=== PATIENT | male | born 1990 | race Hispanic/Latino ===

== ENCOUNTER 2017-02-03 20:07 | Observation (INO) | payer SELFPAY ==
[~2017-02-03] VITALS: Ht 170.2 cm; Wt 90.0 kg
--- NOTE | 2017-02-03 20:26 | NUR ---
PT TO ROOM FOR TREATMENT IN STABLE CONDITION
--- NOTE | 2017-02-03 20:27 | NUR ---
PT. TO ROOM 15 WITH C/O WORKING OUTSIDE ALL DAY IN THE HEAT AND NOT DRINKING ENOUGH FLUID. SKIN WARM AND DRY TO TOUCH, COLOR WNL, RESP. EVEN AND UNLABORED. V/S STABLE.
[2017-02-03 21:25] LABS: URINE BLOOD DIPSTICK TRACE-INTACT (NEGATIVE); URINE COLOR YELLOW; URINE GLUCOSE - DIPSTICK NEGATIVE (NEGATIVE); URINE KETONE TRACE mg/dL (NEGATIVE); URINE LEUK ESTERASE NEGATIVE (NEGATIVE); URINE NITRITE - DIPSTICK NEGATIVE (Negative); URINE SPECIFIC GRAVITY >=1.030; URINE UROBILINOGEN - DIPSTICK 0.2 E.U./dL (0.2)
[2017-02-03 21:27] LABS: URINE BILIRUBIN - DIPSTICK SMALL (NEGATIVE); URINE CLARITY SLIGHT CLOUDY; URINE PROTEIN - DIPSTICK Trace mg/dL (NEG-TRACE)
[2017-02-03 21:27] LABS: HEMATOCRIT 51.8 % (39.0-50.0); HEMOGLOBIN 18.8 g/dl (14.0-18.0); IMMATURE GRANULOCYTES 0.5 % (0.0-1.0); MEAN CELL VOLUME 82.7 fL CALC (80.0-100.0); MEAN CORPUSCULAR HGB CONC 36.3 g/L CALC (32.0-36.0); NEUT# 15.82 thou/uL (1.82-7.42); RED BLOOD COUNT 6.26 mill/uL (4.70-6.10); RED CELL DISTRI WIDTH 12.3 % (11.5-15.5)
--- NOTE | 2017-02-03 21:27 | NUR ---
IVF IN FUSING WELL, NO REDNESS OR EDEMA NOTED. FAMILY AT SIDE.
[2017-02-03 21:41] LABS: ALKALINE PHOSPHATASE 84 u/l (38-126); ANION GAP 35 (6-22 (CALC)); BILIRUBIN, TOTAL 1.2 mg/dL (0.0-1.4); BUN 34 mg/dL (9-20); BUN/CREATININE RATIO 13 (12-20 (CALC)); CALCIUM 11.7 mg/dL (8.4-10.2); CARBON DIOXIDE 16 mmol/l (22-30); CHLORIDE 93 mmol/l (95-108); CREATININE 2.6 mg/dL (0.7-1.3); GFR 30 ML/MIN (>=60 (CALC)); GFR FOR AFR.AMER. 36 ML/MIN (>=60 (CALC)); GLUCOSE 129 mg/dL (75-110); POTASSIUM 4.4 mmol/l (3.5-5.1); SGOT/AST 41 u/l (17-59); SGPT/ALT 58 u/l (21-72); SODIUM 139 mmol/l (137-146)
[2017-02-03 21:47] LABS: ALBUMIN > 6.0 g/dL (3.2-5.0); TOTAL PROTEIN > 11.0 g/dL (6.3-8.2)
--- NOTE | 2017-02-03 22:07 | NUR ---
PT. RESTING ON STRETCHER, NO C/O PAIN OR DISCOMFORT OFFERED, REFUSED MS AND ZOFRAN.
--- NOTE | 2017-02-03 23:07 | NUR ---
IVF CONT. INFUSING. PT. RESTING ON STRETCHER, NO ACUTE DISTRESS NOTED.
--- NOTE | 2017-02-04 00:07 | NUR ---
PT. STATES, " I FEEL MUCH BETTER NOW."
[2017-02-04 00:18] LABS: HEMATOCRIT 46.2 % (39.0-50.0); HEMOGLOBIN 16.6 g/dl (14.0-18.0); IMMATURE GRANULOCYTES 0.4 % (0.0-1.0); MEAN CELL VOLUME 83.2 fL CALC (80.0-100.0); MEAN CORPUSCULAR HGB 29.9 pG CALC (26.0-32.0); MEAN CORPUSCULAR HGB CONC 35.9 g/L CALC (32.0-36.0); NEUT# 12.91 thou/uL (1.82-7.42); RED BLOOD COUNT 5.55 mill/uL (4.70-6.10); RED CELL DISTRI WIDTH 12.4 % (11.5-15.5)
[2017-02-04 00:29] LABS: ALBUMIN 5.2 g/dL (3.2-5.0); ALKALINE PHOSPHATASE 60 u/l (38-126); ANION GAP 20 (6-22 (CALC)); BUN 25 mg/dL (9-20); BUN/CREATININE RATIO 21 (12-20 (CALC)); CARBON DIOXIDE 21 mmol/l (22-30); CHLORIDE 100 mmol/l (95-108); CREATININE 1.2 mg/dL (0.7-1.3); GFR > 60 ML/MIN (>=60 (CALC)); GFR FOR AFR.AMER. > 60 ML/MIN (>=60 (CALC)); GLUCOSE 139 mg/dL (75-110); POTASSIUM 3.8 mmol/l (3.5-5.1); SGOT/AST 32 u/l (17-59); SGPT/ALT 51 u/l (21-72); SODIUM 138 mmol/l (137-146); TOTAL PROTEIN 8.9 g/dL (6.3-8.2)
[2017-02-04 00:30] LABS: CALCIUM 9.7 mg/dL (8.4-10.2)
--- NOTE | 2017-02-04 00:39 | NUR ---
PT. VOIDED 100 ML DK. LEELEE URINE.
[2017-02-04 00:41] LABS: MYOGLOBIN 202 ng/mL (0 - 121)
--- NOTE | 2017-02-04 01:57 | NUR ---
md in room to discuss clinical findings and make pt. aware of admission, verbalized understanding.
--- NOTE | 2017-02-04 02:30 | NUR ---
Admission Note Report Given to: baldev lindquist Transported by: Wheelchair x Stretcher Transported with: x Nurse Transporter x Patent IV O2 x Power Sweeper Operator
--- NOTE | 2017-02-04 02:39 | NUR ---
TRANSFERED TO ICU VIA STRETCHER.
--- NOTE | 2017-02-04 02:45 | NUR ---
FROM ER TO ICU B7 A MED/SURG OVERFLOAT, ARRIVED VIA STRETCHER, ON ROOM AIR, ACCOMPANIED BY AMY CAGE RN. PT ABLE TO AMBULATE FROM STRETCHER TO BED, STEADY GAIT NOTED, C/O OF MILD WEAKNESS, DENIES PAIN OR N/V, SKIN IS WARM AND MOIST, DIAPHORETIC, STATES "I FEEL WARM." TEMP 98.4, SR ON MONITOR, HR 78, RR 20 EVEN AND UNLABORED, NO DISTRESS NOTED, BP 148/72, SPO2 100% ON RA, HAS A 20G RAC SALINE LOCK, FLUSHES WELL WITH BLOOD RETURN, STARTED NS AT 125ML/HR PER ORDERS, NO SKIN ISSUES NOTED, REFUSED SABIHA HOSE, PROVIDED FRESH BOTTLE OF WATER, EXPLAINED SAFETY MEASURES AND PLAN OF CARE, VOICES UNDERSTANDING, DENIES BEING AT ANY HOSPITAL BEFORE, DENIES PMH, DOES NOT DRIVE, LIVES WITH AND X2 SONS, EXPLAINED CALL TREJO, WILL CONTINUE TO MONITOR.
[2017-02-04 03:00] VITALS: BP 147/74
--- NOTE | 2017-02-04 05:00 | NUR ---
PT VOICES NO COMPLAINTS, APPEARS TO BE SLEEPING WITH EYES CLOSED, NO DISTRESS NOTED, NO EMESIS NOTED, DENIES NAUSEA OR PAIN, VSS, WILL CONTINUE TO MONITOR, IVF INFUSING WITHOUT DIFFICULTY, CALL TREJO AT REACH.
--- NOTE | 2017-02-04 06:45 | NUR ---
REPORT RECEIVED FROM TIFFANIE ALLISON. PT RESTING COMFORTABLY AT THIS TIME WITH SIGN. OTHER AT BS. DENIES PAIN, SOB, DISCOMFORT. INSTRUCTED PT TO CALL FOR ASSISTANCE, PT VERBALIZES UNDERSTANDING.
[2017-02-04 10:36] VITALS: BP 132/65
--- NOTE | 2017-02-04 11:00 | NUR ---
Discharge instructions given. Patient verbalizes understanding of same. Discharged in stable condition via Wheelchair to Home with family. All belongings sent with pt.
== END 2017-02-04 11:00 | disposition home or self-care (01) | DRG 684 ==
LOC: ED 20:07 → ED-I 02-04 01:23 → ED 02-04 01:47 → ICU 02-04 01:48
PROVIDERS: Emergency Medicine; ADMIT Internal Medicine; ATTEND Internal Medicine
DX: N17.9 Acute kidney failure, unspecified (principal); E86.0 Dehydration; T67.2XXA Heat cramp, initial encounter; X30.XXXA Exposure to excessive natural heat, initial encounter; Y93.H9 Activity, other involving exterior property and land maintenance, building and construction